=== PATIENT | female | born 1995 | race Caucasian/White ===

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

== ENCOUNTER → 2017-08-03 | Outpatient (REF) | payer OTHER ==
[2017-08-03 19:34] LABS: MEAN CORPUSCULAR HEMOGLOBIN 27.2 pg (27.0-33.0); MEAN CORPUSCULAR HGB CONC 32.9 g/dl (32.0-36.5); MEAN CORPUSCULAR VOLUME 82.5 fl (80.0-96.0); PLATELET COUNT, AUTOMATED 260 10^3/uL (150-450); RED CELL DISTRIBUTION WIDTH 13.1 % (11.5-14.5)
[2017-08-03 19:54] LABS: VITAMIN B12 LEVEL 488 PG/ML
[2017-08-03 19:55] LABS: FOLATE 6.9 NG/ML
[2017-08-03 19:57] LABS: ALBUMIN/GLOBULIN RATIO 1.21 (1.00-1.93); ALKALINE PHOSPHATASE 61 U/L (45-117); ALT/SGPT 14 U/L (12-78); ANION GAP 7 MEQ/L (8-16); AST/SGOT 6 U/L (15-37); BILIRUBIN,TOTAL 0.3 MG/DL (0.2-1.0); BLOOD UREA NITROGEN 11 MG/DL (7-18); CALCIUM LEVEL 8.9 MG/DL (8.5-10.1); CARBON DIOXIDE LEVEL 29 MEQ/L (21-32); CHLORIDE LEVEL 106 MEQ/L (98-107); CREATININE FOR GFR 1.04 MG/DL (0.55-1.02); FREE T4 1.22 NG/DL (0.78-1.33); GLUCOSE, FASTING 82 MG/DL (70-105); POTASSIUM SERUM 4.1 MEQ/L (3.5-5.1); SODIUM LEVEL 142 MEQ/L (136-145); TOTAL PROTEIN 7.3 GM/DL (6.4-8.2)
== END ==
LOC: M SFHCADAM 15:46
PROVIDERS: ATTEND Physician Assistant
DX: R42 Dizziness and giddiness (principal); N92.0 Excessive and frequent menstruation with regular cycle; E55.9 Vitamin D deficiency, unspecified

== ENCOUNTER → 2017-08-31 | Outpatient (REF) | payer OTHER | LOC: M SFHCPLAZ 11:53 | PROVIDERS: ATTEND Family Medicine | DX: D21.21 Benign neoplasm of connective and other soft tissue of right lower limb, including hip (principal) ==